=== PATIENT | female | born 1985 | race Two or more races ===

== ENCOUNTER 2020-02-18 14:36 | Inpatient (IN) | payer OTHER ==
[~2020-02-18] VITALS: Ht 160 cm; Wt 93.4 kg
== END 2020-03-07 13:21 | DRG 741 ==
LOC: EDSTATUS 02-28 07:30 → ADM 02-28 07:30 → O/R 03-06 06:39 → OB/GYN 03-06 06:39 → SURH 03-06 07:30 → OB/GYN 03-06 21:18
PROVIDERS: ADMIT Obstetrics & Gynecology Gynecologic Oncology; ATTEND Obstetrics & Gynecology Gynecologic Oncology
PROC: 0UT5FZZ Resection of Right Fallopian Tube, Via Natural or Artificial Opening With Percutaneous Endoscopic Assistance (ICD-10-PCS; 2020-03-06)
PROC: 0UT0FZZ Resection of Right Ovary, Via Natural or Artificial Opening With Percutaneous Endoscopic Assistance (ICD-10-PCS; 2020-03-06)
PROC: 07BC4ZZ Excision of Pelvis Lymphatic, Percutaneous Endoscopic Approach (ICD-10-PCS; 2020-03-06)
PROC: 0UT9FZZ Resection of Uterus, Via Natural or Artificial Opening With Percutaneous Endoscopic Assistance (ICD-10-PCS; principal; 2020-03-06 15:45)
DX: C54.1 Malignant neoplasm of endometrium (principal); N80.0 Endometriosis of uterus